=== PATIENT | female | born 1980 | race Caucasian/White ===

== ENCOUNTER 2017-08-04 23:09 | Emergency (ER) | payer OTHER ==
[2017-08-05] MEDS: AUGMENTIN 875 MG TAB PO (00:01)
== END 2017-08-05 00:51 | disposition home or self-care (01) ==
LOC: M ED 23:09
DX: S61.451A Open bite of right hand, initial encounter (principal); W54.0XXA Bitten by dog, initial encounter; Y92.009 Unspecified place in unspecified non-institutional (private) residence as the place of occurrence of the external cause; Z79.899 Other long term (current) drug therapy
CPT/HCPCS: 99282